=== PATIENT | female | born 1985 | race American Indian/Alaskan Native ===

== ENCOUNTER 2019-10-06 21:15 | Emergency (ER) | payer OTHER ==
[2019-10-06 21:38] VITALS: BP 124/69
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
[2019-10-07] MEDS ORDERED: IBUPROFEN 800 MG TAB PO ONE (01:25)
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
== END 2019-10-07 02:20 | disposition home or self-care (01) ==
LOC: ED 21:15
DX: S16.1XXA Strain of muscle, fascia and tendon at neck level, initial encounter (principal); Z79.1 Long term (current) use of non-steroidal anti-inflammatories (NSAID); Z79.899 Other long term (current) drug therapy; V49.49XA Driver injured in collision with other motor vehicles in traffic accident, initial encounter; Y93.89 Activity, other specified; Y92.488 Other paved roadways as the place of occurrence of the external cause; Y99.8 Other external cause status
CPT/HCPCS: 99282

== ENCOUNTER 2021-07-16 15:03 | Emergency (ER) | payer OTHER | END 2021-07-17 09:57 | disposition left against medical advice (07) | LOC: ED 15:03 | DX: Z04.1 Encounter for examination and observation following transport accident (principal); Z53.21 Procedure and treatment not carried out due to patient leaving prior to being seen by health care provider ==